=== PATIENT | female | born 1995 | race Hispanic/Latino ===

== ENCOUNTER 2024-10-29 21:40 | Emergency (ER) | payer SELFPAY ==
[~2024-10-29] VITALS: Ht 152.4 cm; Wt 72.6 kg
[~2024-10-29 21:40] MED LIST: HYDR-3421 PO; SULF1TAB42 PO
--- NOTE | 2024-10-29 21:41 | NUR ---
COVID, FLU AND STREP SWABS COLLECTED AND SENT
[2024-10-29 22:01] LABS: RAPID GROUP A STREP negative (NEGATIVE)
[2024-10-29 22:03] LABS: SARS-CoV-2, RNA, NAAT NEGATIVE SARS CoV-2 (NEGATIVE)
[2024-10-29 22:10] LABS: INFLUENZA TYPE A Negative For Type A (NEGATIVE); INFLUENZA TYPE B Negative For Type B (NEGATIVE)
[2024-10-30] MEDS ORDERED: AMOX1TAB16 PO (00:45)
--- NOTE | 2024-10-30 00:47 | ERN ---
ED Note History of Present Illness Stated Complaint: FEVER, RT EAR PAIN Chief Complaint: Multiple Complaints Time Seen by MD: 21:58 Dictation: This is a 29-year-old female who presented to the emergency room with complaints of subjective fevers and sore throat which started on 10/27/2024. She stated that eventually the sore throat spread to the right ear and she began experiencing severe right ear pain. She was unable to sleep and hence she came into the ER for further evaluation. She denied any actual drainage from the ear or bleeding. No documented or recorded fevers. Temperature 98.8 pulse 86 respirations 18 blood pressure 160/84 with a pulse oximetry of 98% on room air Allergies: Coded Allergies: No Known Allergies (Unverified Allergy, Unknown, 12/05/22) Home Meds Active Scripts Amoxicillin/Potassium Clav (Amox Tr-K Clv 875-125 mg Tab) 875 Mg-125 Mg Tablet, 1 EACH PO BID for 5 Days, #10 TAB 0 Refills Prov:FREDDIE CALDERON MD 10/30/24 Hydroxyzine HCl (Hydroxyzine HCl) 25 Mg Tablet, 25 MG PO TID for 3 Days, #9 TAB Prov:SCOUT VARGAS 12/05/22 Sulfamethoxazole/Trimethoprim (Bactrim Ds Tablet) 800 Mg-160 Mg Tablet, 1 TAB PO BID for 7 Days, #14 TAB 0 Refills Prov:SCOTU VARGAS 12/05/22 Past Medical History Past Medical History: No Pertinent History Surgical History: Surgical History Other: OVARIAN CYST Family History: Negative Social History: Negative RN Note Reviewed/Agreed w/PFSH: Yes Review of System Dictation Constitutional: Negative for fever,chills, and weight loss Eyes: Negative for injury, pain,redness, and discharge ENT: Negative for injury,pain or swelling positive for sore throat and right earache Cardiovascular: Negative for chest pain, palpitations, and edema Respiratory: Negative for shortness of breath, cough, and wheezing, Abdomen/GI: Negative for abdominal pain, nausea, vomiting, diarrhea, and constipation Back: Negative for injury and pain : Negative for injury, bleeding and discharge MS/Extremity: Negative for injury and deformity Skin: Negative for rash, and discoloration Neuro: Negative for headache, weakness, numbness, tingling, and seizure Psych: Negative for suicide ideation, homicidal ideation, and hallucinations Initial Vital Sign VS Vital Signs Date Time Temp Pulse Resp B/P (MAP) Pulse Ox O2 Delivery O2 Flow Rate FiO2 10/29/24 21:41 98.8 86 18 160/84 98 Room Air 10/30/24 00:54 0 21 Physical Exam Dictation General: awake, alert, NAD looks uncomfortable Head/Face: Normocephalic, atraumatic Eyes: PERRL, EOMI, vision at baseline ENT: oral cavity clear, TMs clear, no signs of infection ;teeth and parotid gla nd massage appeared normal. Right external auditory canal is very inflamed and swollen narrow mild erythema of the posterior pharyngeal wall noted no exudate. Neck: Trachea midline, supple, no nuchal rigidity Cardiovascular: RRR, normal S1/S2, No MRGs, no JVD Respiratory: CTAB, no respiratory distress, No rales or wheezes Abdomen: Soft, non-tender, non-distended, normal bowel sounds, no guarding or rebound. Skin: Warm, dry, normal turgor, no rash MS/Extremity: Pulses equal, no cyanosis, neurovascular intact, FROM Neuro: COAx4, GCS 15, strength 5/5, CN 2-12 intact, normal cerebellar exam, normal gait, Psych: Normal behavior, mood, and affect normal Extremities-trace edema without any palpable cords, Homans sign is negative Results (Laboratory/Radiology) Laboratory/Radiology Laboratory Tests Test 10/29/24 21:44 Influenza Type A Antigen Negative For Type A Influenza Type B Antigen Negative For Type B SARS-CoV-2, RNA, NAAT NEGATIVE SARS CoV-2 Group A Streptococcus Rapid negative (NEGATIVE) Labs Reviewed?: Yes ED Course ED Course Orders Procedure Category Date Status Time Covid Rna Naat LAB 10/29/24 Complete 21:41 Influenza Type A & B, LAB 10/29/24 Complete Rapid 21:41 Rapid (Group A Strep) LAB 10/29/24 Complete 21:41 Ketorolac PHA 10/30/24 Complete Tromethamine 30mg/Ml 01:00 Methylprednisolone PHA 10/30/24 Complete Succ 40mg (Solu-Medro 01:00 Current Medications Medications (Trade) Dose Ordered Sig/Be Route PRN Reason Start Time Stop Time Status Last Admin Dose Admin Ketorolac Tromethamine (toRADol) 30 mg ONCE ONCE IM 10/30/24 01:00 10/30/24 01:01 DC 10/30/24 01:12 Methylprednisolone Sodium Succinate (Solu-medROL 40MG) 40 mg ONCE ONCE IM 10/30/24 01:00 10/30/24 01:01 DC 10/30/24 01:12 Vital Signs Date Time Temp Pulse Resp B/P (MAP) Pulse Ox O2 Delivery O2 Flow Rate FiO2 10/30/24 00:54 99.3 88 18 139/95 98 Room Air* 0 21 10/29/24 21:41 98.8 86 18 160/84 98 Room Air We will perform diagnostic labs, and administer medications according to the patient's complaint. Once the results are available, will review and personally interpreted the labs to rule out any acute life-threatening emergency the trach require immediate intervention and treatment. I will then re-evaluate the patient after treatment and diagnostic exams have return to determine whether the patient requires any further testing, can safely be discharged home or need further admission to hospital for additional treatment and evaluation. Discussed with the patient extensively that her basic testing was negative for COVID influenza and strep Empiric antibiotic for 5 days and patient to follow up with her primary care physician Medical Decision Making MDM MDM: Differential diagnosis: Pharyngitis, influenza, COVID, otitis Rationale: Tests considered and ordered secondary to shared decision making include: Previous outside records reviewed: Old ER visits. Risk of complication and/or morbidity or mortality of patient management: None Medications-Per medication reconciliation Need for hospitalization: Patient does not meet criteria for hospitalization. Need for emergency major/minor surgery: No There are no social concerns with this patient. Prescription drug management Prescriptions will include symptomatic care Patient's prior external medical records from other ER visits were reviewed by me as indicated. Prior testing and results from previous visits were reviewed. Prior tests were taken into account with medical decision making and resource utilization, independent historian/historians were used to obtain complete medical history. I independently interpreted the test that were performed, results were reviewed by me and considered findings on radiology if ordered. Medical management and examination interpretation discussions were had by me with other qualified healthcare professionals as indicated for the patient's care. Problem List Problem List: (1) Pharyngitis (2) Otitis externa DX & DISP Disposition: Discharge Departure Impression: Primary Impression: Pharyngitis Additional Impression: Otitis externa Condition: Stable Scripts Amoxicillin/Potassium Clav (Amox Tr-K Clv 875-125 mg Tab) 875 Mg-125 Mg Tablet 1 EACH PO BID for 5 Days, #10 TAB 0 Refills Prov: FREDDIE CALDERON MD 10/30/24 Additional Instructions: Patient and the caregiver have been informed of all the diagnostic tests and the imaging conducted during the today's visit to the emergency room and has verbalized understanding of the results I have personally reviewed and interpreted all diagnostic exams performed here in the ER today as well as the vital signs documented by the nursing staff. The patient is now being discharged to home and should follow up with the primary care physician or the specialist as directed by the ER staff. Follow-up with primary care provider in 1 to 2 days. Take medications as directed here in the emergency room. Okay to continue home medications unless otherwise discussed during your visit in the emergency room today. Return to your nearest emergency room if symptoms worsen or if there is no improvement. Call 911 if you need immediate assistance. Take Tylenol or Motrin [id number] as needed and if no contraindications are present. Increase oral hydration. A wound culture or urine culture was ordered here in the emergency room department please follow-up with primary care provider and advise them to get repeat ports from our facility. If you had any Reyes wrap/splints that were applied here, please do not remove them until you see your primary care or specialty. Referrals: NONE (PCP) FREDDIE CALDERON MD Oct 30, 2024 00:46
[2024-10-30] MEDS: Solu-medROL 40MG VIAL IM ONE (01:12)
[2024-10-30 02:09] VITALS: BP 134/80; PULSE 98; RESP 18; TEMP 99; O2SAT 99
== END 2024-10-30 02:37 | disposition home or self-care (01) ==
LOC: EDH 21:40
DX: J02.9 Acute pharyngitis, unspecified (principal); H60.91 Unspecified otitis externa, right ear; Z20.822 Contact with and (suspected) exposure to COVID-19
CPT/HCPCS: 99284; 87635; 87880; 87804 ×2; 96372 ×2; J1885; J2919